=== PATIENT | female | born 1985 | race Caucasian/White ===

== ENCOUNTER 2022-03-17 08:06 | Inpatient (IN) | payer BC ==
[2022-03-14 09:10] LABS: ANION GAP 15.3 mmol/L (8-16); CALCIUM 9.9 mg/dL (8.4-10.2); CREATININE, SERUM 0.84 mg/dL (0.57-1.11); POTASSIUM 3.3 mmol/L (3.5-5.1)
[~2022-03-17] VITALS: Ht 172.7 cm; Wt 121.1 kg
[~2022-03-17 08:06] MED LIST: CEFAZOLIN SODIUM 2 GM ONE; HYDROCHLOROTHIA25 MG PO; LEVOTHYROXINE50 MCG PO; MULTI-VITAMIN1 EACH PO; ZYRTEC10 M3 PO
[2022-03-17] MEDS ORDERED: ACETAMINOPHEN 1000 MG/100 ML 100 ML IV ONE (08:52)
[2022-03-17] MEDS ORDERED: HYDROCODONE/APAP 7.5MG-325MG 1 EA TAB PO PRN (09:30)
[2022-03-17] MEDS ORDERED: BUPIVACAINE HCL 0.5% INJ 30 ML VIAL INJ ONE (10:00)
[2022-03-17] MEDS: FENTANYL CITRATE/PF 100MCG/2 ML INJ ONE ×2 (11:57→14:11)
[2022-03-17] MEDS ORDERED: ONDANSETRON HCL INJ 2MG/ML 2ML 2 MG/ML VIAL ONE ×2 (12:09→12:44)
[2022-03-17] MEDS ORDERED: METOCLOPRAMIDE HCL 10 MG/2ML VIAL ONE (12:30)
[2022-03-17] MEDS ORDERED: SEVOFLURANE INHAL SOLN 250 ML PEN BTL ONE (12:44)
[2022-03-17] MEDS ORDERED: POVIDONE IODINE 0.05% 0.05 % ML PO ONE (12:44)
[2022-03-17] MEDS ORDERED: PROPOFOL IV EMULSION 10 MG/ML 20 ML VIAL ONE (12:44)
[2022-03-17] MEDS ORDERED: SUCCINYLCHOLINE CHLORIDE 20 MG/ML 10ML VIAL ONE (12:44)
[2022-03-17] MEDS ORDERED: LIDOCAINE HCL 2% LOCAL INJ 5 ML SDV VIAL INJ ONE (12:44)
[2022-03-17] MEDS ORDERED: KETOROLAC TROMETHAMINE 30 MG/ML VIAL ONE (12:44)
[2022-03-17] MEDS ORDERED: ROCURONIUM BROMIDE 10 MG/ML 5ML VIAL IV ONE (12:44)
[2022-03-17] MEDS ORDERED: GLYCOPYRROLATE INJ 0.2 MG/ML VIAL ONE (12:44)
[2022-03-17] MEDS ORDERED: DEXAMETHASONE SOD PHOS INJ 4 MG/ML SDV ONE (12:44)
[2022-03-17] MEDS ORDERED: NEOSTIGMINE 1 MG/ML 10ML VIAL ONE (12:44)
[2022-03-17] MEDS ORDERED: FENTANYL CITRATE/PF 100MCG/2 ML INJ ONE (13:02)
[2022-03-17] MEDS ORDERED: PROMETHAZINE HCL (IM) 25 MG/ML VIAL IM ONE (13:34)
[2022-03-17 13:45] VITALS: BP 130/68
[2022-03-17 13:54] VITALS: BP 140/81
[2022-03-17] MEDS ORDERED: SCOPOLAMINE 1 MG PATCH TOP SCH (14:00)
[2022-03-17] MEDS: LACTATED RINGER'S 1,000 ML IV SCH ×2 (14:10→17:30)
[2022-03-17 14:58] VITALS: BP 140/81
[2022-03-17] MEDS: ONDANSETRON HCL INJ 2MG/ML 2ML 2 MG/ML VIAL IV PRN (18:50)
[2022-03-17] MEDS: Morphine 2mg Syringe 2 MG/ML SYR IV PRN ×2 (18:51→21:31)
[2022-03-17 21:20] VITALS: BP 117/76
[2022-03-17] MEDS: ENOXAPARIN SOD INJ 40 MG/0.4 ML SYR SC SCH (21:30)
[2022-03-18] MEDS: LACTATED RINGER'S 1,000 ML IV SCH ×2 (00:46→08:50)
[2022-03-18 00:47] VITALS: BP 146/91
[2022-03-18] MEDS: ONDANSETRON HCL INJ 2MG/ML 2ML 2 MG/ML VIAL IV PRN ×2 (00:47→07:37)
[2022-03-18] MEDS: Morphine 2mg Syringe 2 MG/ML SYR IV PRN ×3 (00:47→07:38)
[2022-03-18 05:47] VITALS: BP 133/87
[2022-03-18 05:56] LABS: BASOPHILS # (AUTO) 0.1 (0.0-0.1); BASOPHILS % 0.3 % (0.0-1.0); HEMATOCRIT 37.9 % (34.2-44.1); HEMOGLOBIN 12.1 g/dL (12.0-16.0); LYMPHOCYTES % 18.6 % (18.0-39.1); MEAN CORPUSCULAR HGB CONC 31.9 g/dL (31-35); MEAN CORPUSCULAR VOLUME 87.7 fL (81-99); MONOCYTES # (AUTO) 1.1 (0.2-0.8); MONOCYTES % 6.5 % (4.4-11.3); NEUTROPHILS % 74.2 % (38.7-80.0); PLATELET COUNT 383 x10e3/uL (140-360); RED BLOOD COUNT 4.32 x10e6/uL (3.6-5.1); RED CELL DISTRIBUTION WIDTH 13.2 % (11.7-14.4)
[2022-03-18 06:26] LABS: ALBUMIN 3.7 g/dL (3.5-5.0); ALBUMIN/GLOBULIN RATIO 1.1 (0.8-2.0); CREATININE, SERUM 0.73 mg/dL (0.57-1.11); MAGNESIUM 1.8 MG/DL (1.3-2.1); PHOSPHORUS 2.2 MG/DL (2.3-4.7)
[2022-03-18] MEDS ORDERED: POTASSIUM CHLORIDE 10MEQ EA PO ONE ×2 (06:45→08:45)
[2022-03-18 08:23] VITALS: BP 134/80
[2022-03-18 08:42] VITALS: BP 134/80
[2022-03-18] MEDS: ENOXAPARIN SOD INJ 40 MG/0.4 ML SYR SC SCH (08:49)
== END 2022-03-18 10:45 | disposition home or self-care (01) | DRG 621 ==
LOC: OR 08:06 → PACU V 09:23 → MED/SURG 13:35
PROVIDERS: ADMIT Internal Medicine; ATTEND Internal Medicine
PROC: 0D164ZA Bypass Stomach to Jejunum, Percutaneous Endoscopic Approach (ICD-10-PCS; principal; 2022-03-17 09:22)
DX: E66.01 Morbid (severe) obesity due to excess calories (principal); E03.9 Hypothyroidism, unspecified; I11.9 Hypertensive heart disease without heart failure; J30.9 Allergic rhinitis, unspecified; E87.6 Hypokalemia; E78.5 Hyperlipidemia, unspecified; Z68.41 Body mass index [BMI] 40.0-44.9, adult; Z90.49 Acquired absence of other specified parts of digestive tract; Z79.899 Other long term (current) drug therapy; Z83.3 Family history of diabetes mellitus; Z98.890 Other specified postprocedural states
CPT/HCPCS: 36415; 80048; 80053; 81025; 83735; 84100; 85025; 94799; C1713; J0330; J1100; J1650; J1885; J2001; J2270; J2405; J2550; J2710; J2765; J3010; J7121